=== PATIENT | female | born 1960 | race American Indian/Alaskan Native ===

== ENCOUNTER 2016-09-01 15:15 | Outpatient (CLI) | payer OTHER | END 2016-09-01 15:16 | disposition home or self-care (01) | LOC: LABHHL 15:15 | PROVIDERS: ATTEND Specialist | DX: N63 Unspecified lump in breast (principal) | CPT/HCPCS: 88305 ==

== ENCOUNTER 2021-09-02 08:43 | Emergency (ER) | payer SELFPAY ==
[2021-09-02] MEDS ORDERED: NITROGLYCERIN 0.4 MG TAB SUBL SL PRN (09:05)
[2021-09-02] MEDS ORDERED: ASPIRIN 81 MG TAB CHEW PO ONE (09:05)
--- NOTE | 2021-09-02 09:09 | Emergency Department Report ---
ED General Adult HPI - General Chief complaint: Chest Pain Stated complaint: CHEST PAIN Time Seen by Provider: 09/02/21 09:05 Source: patient Mode of arrival: Ambulatory Limitations: No Limitations - History of Present Illness Initial comments: Patient presents with chest pain. She describes a left-sided chest pain is aching. This is positional. It is worse when she leans forward. It is worse when she leans back. It is worse with exertion. This is not pleuritic. Patient states that she has had associated shortness of breath with this. When she walks she becomes more short of breath. This is been present for months. It is gradually worsened. Today it is severe and she believes that the trouble breathing has incapacitated her. She states that she cannot go to the grocery and get shopping done without feeling short of breath and having this pain. She ultimately decided to come here for evaluation because her symptoms worsened. There is no history of recent travel or trauma. She has no pain or swelling in the legs. - Related Data Allergies Allergy/AdvReac Type Severity Reaction Status Date / Time No Known Allergies Allergy Unverified 09/02/21 08:59 ED Review of Systems ROS: Stated complaint: CHEST PAIN Other details as noted in HPI Comment: All other systems reviewed and negative Constitutional: denies: fever Eyes: denies: eye pain ENT: denies: throat pain Respiratory: see HPI. denies: cough Cardiovascular: as per HPI Endocrine: denies: unexplained weight loss Gastrointestinal: denies: abdominal pain Genitourinary: denies: dysuria Musculoskeletal: denies: back pain Skin: denies: rash Neurological: denies: headache Hematological/Lymphatic: denies: easy bruising ED Past Medical Hx - Past Medical History Hx Hypertension: Yes Additional medical history: MAY HAVE DIABETES BUT DOESNT TAKE ANYTHING FOR IT - Surgical History Past Surgical History?: No - Family History Family history: hypertension ED Physical Exam - General Limitations: No Limitations, Other (Pulse ox noted and normal) General appearance: alert, in no apparent distress - Head Head exam: Present: atraumatic, normocephalic - Eye Eye exam: Present: normal appearance, EOMI. Absent: scleral icterus - ENT ENT exam: Present: normal orophraynx, normal external ear exam - Neck Neck exam: Present: normal inspection. Absent: meningismus - Respiratory Respiratory exam: Present: normal lung sounds bilaterally. Absent: respiratory distress - Cardiovascular Cardiovascular Exam: Present: regular rate, normal rhythm - GI/Abdominal GI/Abdominal exam: Present: soft - Extremities Exam Extremities exam: Present: normal capillary refill. Absent: calf tenderness - Back Exam Back exam: Absent: CVA tenderness (R), CVA tenderness (L) - Neurological Exam Neurological exam: Present: alert, oriented X3, CN II-XII intact, normal gait. Absent: motor sensory deficit - Psychiatric Psychiatric exam: Present: normal affect, normal mood - Skin Skin exam: Present: warm, dry ED Course - Reevaluation(s) Reevaluation #1: 09/02/21 09:07 IV and labs ordered. EKG was ordered. Old records noted. Reevaluation #2: 09/02/21 10:39 X-ray was noted. ED Medical Decision Making - Lab Data Result diagrams: 09/02/21 09:32 09/02/21 09:32 Rhythm strip: Normal sinus rhythm without ectopy per monitor observe 10 seconds. - EKG Data -: EKG Interpreted by Me - EKG Data 09/02/21 10:39 [id number] shows normal sinus rhythm at 69. Intervals normal including a QRS of 92 and a QT corrected of 427. Patient has no ST elevation to suggest infarct. There is T wave inversion in V1 and V2. There is T wave flattening in V3. Patient does not have any other abnormality besides artifact. There is no old EKG for comparison. - Radiology Data Radiology results: report reviewed - Medical Decision Making Patient presents with chest pain and exertional dyspnea. Etiology for this is unknown. Patient has a negative cardiac work-up and a sufficiently low heart score that would allow for discharge and outpatient follow-up. There was no clinical evidence suggestive of pneumonia. She did not have a cough or fever. She did not have risk factors for pulmonary embolism and her pain was not pleuritic. She would not have PE symptoms for months at this time. She certainly does not have a pulse deficit or evidence of aortic dissection based on her clinical presentation. Critical Care Time: No Critical care attestation.: If time is entered above; I have spent that time in minutes in the direct care of this critically ill patient, excluding procedure time. ED Disposition Clinical Impression: Exertional chest pain, Exertional dyspnea Disposition: HOME / SELF CARE / HOMELESS Is pt being admited?: No Condition: Stable Instructions: Shortness of Breath, Adult, [id number], Nonspecific Chest Pain, Adult Additional Instructions: Take an aspirin every day. Drink any water. Return for problems. Follow-up with primary care and specialty physicians as referred. Referrals: CLINT LEDESMA MD [Staff Physician] - 3-5 Days [facility], [Primary Care Provider] - 3-5 Days ERICK MARTÍNEZ [Staff Physician] - 3-5 Days
[2021-09-02 09:38] LABS: Hematocrit 37.8 % (30.3-42.9); Hemoglobin 11.9 gm/dl (10.1-14.3); Mean Corpuscular HGB Conc 31 % (30-34); Mean Corpuscular Volume 83 fl (79-97); Platelet Count 312 K/mm3 (140-440); Red Blood Count 4.56 M/mm3 (3.65-5.03); Red Cell Distribution Width 14.7 % (13.2-15.2)
--- NOTE | 2021-09-02 09:55 | XRay Report ---
XR chest routine 2V INDICATION / CLINICAL INFORMATION: cp. COMPARISON: None available. FINDINGS: SUPPORT DEVICES: None. HEART /PULMONARY VASCULATURE: No significant abnormality. LUNGS / PLEURA: No significant pulmonary or pleural abnormality. No pneumothorax. ADDITIONAL FINDINGS: No significant additional findings. IMPRESSION: 1. No acute findings. Signer Name: Adiel Otto MD Signed: 09/02/2021 9:48 AM Workstation Name: [id number]
[2021-09-02 10:00] LABS: BUN/Creatinine Ratio 12; Blood Urea Nitrogen 11 mg/dL (7-17); Calcium 8.4 mg/dL (8.4-10.2); Hemolysis Index 3
--- NOTE | 2021-09-02 10:58 | Electrocardiograph Report ---
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
== END 2021-09-02 15:51 | disposition home or self-care (01) ==
LOC: ED 08:43
DX: R07.9 Chest pain, unspecified (principal); R06.09 Other forms of dyspnea; I10 Essential (primary) hypertension
CPT/HCPCS: 36415; 71046; 80048; 84484; 85027; 93005; 93010; 99284